=== PATIENT | female | born 1950 | race Caucasian/White ===

== ENCOUNTER → 2020-02-23 10:18 | Outpatient (CLI) | payer MEDICARE, SELFPAY ==
[2020-02-23 10:12] VITALS: BMI 30.3
--- NOTE | 2020-02-23 10:21 | RAD_ITS ---
STUDY: X-RAY - LEFT ANKLE REASON FOR EXAM: Female, 69 years old. pt experiencing left ankle pain for about 10 months, no known injury, burning shooting pain medially TECHNIQUE: 3 view(s) of the ankle. COMPARISON: None. FINDINGS: Normal visualized distal tibia and fibula. Normal medial and lateral malleoli. Normal tibiotalar articulation and ankle mortise. Normal visualized talus and calcaneus. The visualized subtalar, talonavicular, calcaneocuboid and tarsal articulations are normal. The soft tissue structures are unremarkable. RAD/Ankle min 3 Views IMPRESSION: Normal x-ray examination of the ankle. Electronically Signed: Chance Montoya MD at 22:11 EDT , Service support ,
--- NOTE | 2020-02-23 10:45 | RAD_ITS ---
STUDY: X-RAY - LEFT FOOT CLINICAL: Bunion. TECHNIQUE: 3 view(s) of the foot. COMPARISON: None. FINDINGS: Normal talus, calcaneus, and tarsal bones. There is a small os trigonum. Normal visualized subtalar, talonavicular, calcaneocuboid, and tarsal articulations. There is joint space narrowing of the second and third tarsometatarsal articulations. There is mild prominence of the medial head of the first metatarsal. Normal metatarsophalangeal joint of the great toe. There is mild hallux valgus deformity. Normal tibial and fibular sesamoid bones. Normal interphalangeal joint of the great toe. Normal phalanges of the great toe. Normal second through fifth metatarsophalangeal joints. Normal interphalangeal joints and phalanges of the lesser toes. There are hammertoe deformities. The soft tissue structures are unremarkable. RAD/Foot min 3 Views IMPRESSION: Mild hallux valgus deformity and mild prominence of the medial head of the first metatarsal. 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 Electronically Signed: Chauncey Luz MD at 14:22 EDT Tel , Service support ,
--- NOTE | 2020-02-23 10:45 | RAD_ITS ---
STUDY: X-RAY - RIGHT FOOT CLINICAL: Bunion. TECHNIQUE: 3 view(s) of the foot. COMPARISON: None. FINDINGS: There is a small plantar calcaneal enthesophyte. Otherwise, unremarkable talus, calcaneus, and tarsal bones. Normal visualized subtalar, talonavicular, calcaneocuboid, and tarsal articulations. There is joint space narrowing of the second tarsometatarsal articulation. There is mild prominence of the medial head of the first metatarsal. Normal metatarsophalangeal joint of the great toe. There is mild hallux valgus deformity. Normal tibial and fibular sesamoid bones. Normal interphalangeal joint of the great toe. Normal phalanges of the great toe. Normal second through fifth metatarsophalangeal joints. Normal interphalangeal joints and phalanges of the lesser toes. There are mild hammertoe deformities. The soft tissue structures are unremarkable. RAD/Foot min 3 Views IMPRESSION: Mild prominence of the medial head of the first metatarsal and mild hallux valgus deformity. Arthrosis of the second tarsometatarsal articulation. Small plantar calcaneal enthesophyte. Electronically Signed: Chauncey Luz MD at 14:35 EDT Tel , Service support ,
== END ==
PROVIDERS: Referring Provider Orthopaedic Surgery; Visit Provider Orthopaedic Surgery
DX: M21.611 Bunion of right foot (principal); M21.612 Bunion of left foot; M76.822 Posterior tibial tendinitis, left leg; M25.572 Pain in left ankle and joints of left foot
CPT/HCPCS: 73610; 73630